=== PATIENT | male | born 1940 | race Caucasian/White ===

== ENCOUNTER 2022-07-20 11:56 | Emergency (ER) | payer MEDICARE, OTHER ==
[2022-07-20] MEDS ORDERED: Meclizine 25 MG Tab PO ONE (12:27)
[2022-07-20] MEDS ORDERED: Lactated Ringers 1,000 ML IV ONE (12:27)
== END 2022-07-20 16:30 | disposition home or self-care (01) ==
LOC: JD.ED 11:56
DX: R42 Dizziness and giddiness (principal); E78.00 Pure hypercholesterolemia, unspecified; E03.9 Hypothyroidism, unspecified; Z79.899 Other long term (current) drug therapy
CPT/HCPCS: 36415; 70450; 71045; 80053; 81003; 83690; 84484; 85025; 93005; 96360; 99285; J7120; 93010; 99283

== ENCOUNTER 2023-05-30 13:15 | Day surgery (SDC) | payer OTHER ==
[~2023-05-30 13:15] MED LIST: Cefuroxime 10 MG/ML SYRINGE EYERT SCH; Lidocaine 1% PF 2 ML SDV INJECT SCH; Pilocarpine 4% Ophth Soln 15 ML Bot EYERT SCH
[2023-05-30] MEDS: Polymyxin B/Trimethoprim 10 ML Bottle EYERT SCH ×3 (14:21→15:53)
[2023-05-30] MEDS: Brimonidine 0.2% Ophth Soln 5 ML Bottle EYERT SCH ×3 (14:25→15:53)
[2023-05-30] MEDS: Phenylephrine 2.5% Ophth Soln 2 ML Bot EYERT SCH ×5 (14:31→15:34)
[2023-05-30] MEDS: Tropicamide 1% Ophth Soln 3 ML Bottle EYERT SCH ×5 (14:39→15:28)
[2023-05-30] MEDS: Proparacaine 0.5% Ophth Soln 15 ML Bottle EYEBOTH SCH ×4 (15:25→15:42)
== END 2023-05-30 15:58 ==
LOC: JD.SDS 13:15
PROVIDERS: ATTEND Ophthalmology
DX: H25.811 Combined forms of age-related cataract, right eye (principal); H35.3132 Nonexudative age-related macular degeneration, bilateral, intermediate dry stage; E78.00 Pure hypercholesterolemia, unspecified; Z79.899 Other long term (current) drug therapy
CPT/HCPCS: 66984; A9270; J0697; V2632; J3490